=== PATIENT | male | born 1935 | race Caucasian/White ===

== ENCOUNTER → 2021-01-30 08:41 | Outpatient (BNVA) | payer MEDICARE, OTHER, SELFPAY | PROVIDERS: PCP Internal Medicine; Visit Provider Hospitalist | DX: I31.3 Pericardial effusion (noninflammatory) (principal); J84.9 Interstitial pulmonary disease, unspecified; J43.2 Centrilobular emphysema; J30.0 Vasomotor rhinitis; R06.00 Dyspnea, unspecified | CPT/HCPCS: 99202 ==

== ENCOUNTER 2021-04-09 09:02 | Outpatient (REF) | payer MEDICARE, OTHER, SELFPAY ==
--- NOTE | 2021-04-09 11:40 | PFT_ITS ---
FLOWS: FEV1 62% of predicted at 1.62 L. FVC 82% of predicted at 3.08 L. FEV1 to FVC ratio of 0.52. No bronchodilator response. LUNG VOLUMES: Total lung capacity 79% of predicted at 5.60 L. Residual volume 96% of predicted at 2.68 L. Slow vital capacity 68% of predicted at 2.92 L. Expiratory reserve volume 66% of predicted at 0.73 L. Diffusion capacity is severely decreased, diffusion capacity adjust to being moderately decreased after correction for alveolar ventilation. IMPRESSION: Combined moderate obstructive and mild restrictive ventilatory defect with no bronchodilator response. Decreased diffusion capacity suggests emphysema. MD GENA Zamora/MODL / [id number]
== END 2021-04-09 09:03 | disposition home or self-care (01) ==
LOC: HO.RESP 09:02
PROVIDERS: Visit Provider Hospitalist
DX: J43.2 Centrilobular emphysema (principal); J84.9 Interstitial pulmonary disease, unspecified; R06.00 Dyspnea, unspecified; J30.0 Vasomotor rhinitis
CPT/HCPCS: 94060; 94727; 94729; 99212

== ENCOUNTER → 2021-12-08 10:03 | Outpatient (BNVA) | payer MEDICARE, OTHER, SELFPAY | PROVIDERS: PCP Internal Medicine; Visit Provider Hospitalist | DX: J84.9 Interstitial pulmonary disease, unspecified (principal); R91.8 Other nonspecific abnormal finding of lung field; J43.2 Centrilobular emphysema; R06.00 Dyspnea, unspecified; J30.0 Vasomotor rhinitis | CPT/HCPCS: 71046; 94618; 99212 ==

== ENCOUNTER → 2022-01-27 09:27 | Outpatient (BNVA) | payer MEDICARE, OTHER, SELFPAY | PROVIDERS: PCP Internal Medicine; Visit Provider Hospitalist | DX: J43.2 Centrilobular emphysema (principal); J84.9 Interstitial pulmonary disease, unspecified; R06.00 Dyspnea, unspecified; J30.0 Vasomotor rhinitis; Z79.899 Other long term (current) drug therapy; Z99.81 Dependence on supplemental oxygen | CPT/HCPCS: 99212 ==

== ENCOUNTER 2022-06-09 09:22 | Outpatient (REF) | payer MEDICARE, OTHER, SELFPAY ==
--- NOTE | ~2022-06-09 | XR_ITS ---
EXAMINATION: XR CHEST CLINICAL INFORMATION: Interstitial lung disease COMPARISON: Previous chest x-ray November 2021. TECHNIQUE: 2 views of the chest were obtained. FINDINGS: The cardiac and mediastinal contours are stable. The pulmonary jessica are prominent. Appearance is more suggestive of prominent pulmonary arteries than lymphadenopathy. There is question of a nodular density overlying the left posterior sixth rib. This is similar to previous chest x-ray. The lungs are otherwise clear. No pleural effusion or pneumothorax. Degenerative changes of the spine. Report are in the left chest wall. XR/XR chest 2V IMPRESSION: Prominent pulmonary jessica more suggestive of a prominent pulmonary arteries and adenopathy. Question 1 cm left upper lung nodule. This is similar to November 2021 exam.
== END 2022-06-09 09:23 | disposition home or self-care (01) ==
LOC: HO.XRAY 09:22
PROVIDERS: PCP Internal Medicine; Visit Provider Hospitalist
DX: J84.9 Interstitial pulmonary disease, unspecified (principal); J43.2 Centrilobular emphysema; J30.0 Vasomotor rhinitis; Z99.81 Dependence on supplemental oxygen
CPT/HCPCS: 71046; 99212

== ENCOUNTER 2023-07-18 09:11 | Outpatient (AMB) | payer MEDICARE, OTHER, SELFPAY ==
[2023-07-18 09:23] VITALS: PULSE 73; O2SAT 88; BMI 29.6
--- NOTE | 2023-07-18 09:23 | A.OFFVIS_ITS ---
Vital Signs 07/18/23 09:23 Height 5 ft 10 in Weight 206 lb 2.115 oz BMI 29.6 Pulse 73 Pulse Source Pulse Oximeter Pulse Oximetry (%) 88 L Oxygen Delivery Method Room Air Intake Visit Reasons: COPD Corporate Coordinator Required: No Allergies No Known Allergies Allergy (Verified 07/18/23 09:25) HPI Comments Details: The patient is an 87-year-old gentleman with a known history of heart disease in addition to COPD. The patient has been developing progressive dyspnea. Moderate severity. He has been admitted multiple times wants to [facility] and also to [facility] more recently. During that evaluation did have an echocardiogram demonstrating moderate pleural effusion without cardiac tamponade. He also had a CT scan of the chest demonstrating interstitial changes primarily at the bases in addition to some emphysematous changes. The patient did work exposed to asbestos a significant part of his life. 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 On that CT scan he also had a large pericardial effusion. Starting of his symptomatic from this effusion. The patient does complain of cough and also postnasal drip. indeed with a pericardial effusion will assess for connective tissue conditions to try to address both issues that interstitial lung disease in the Pericardial fluid. We did review pulmonary function studies from [facility] back almost 10 years ago when he was being followed closely by Dr. Ruby and at that time he did have moderate degree of COPD already. During the office visit we did do a 6 minute walk test. The patient did desaturate down to the low 90s but he did not qualify for oxygen. At this point will start the patient on bronchodilator therapy to see if he can have some improvement in his respiratory symptoms. I will plan to repeat his pulmonary function studies. He will need to follow up closely with cardiology regarding his pericardial effusion which in the is significant in size. based on his recent CT scan of the chest done at [facility] was moderate to large. It was documented on echocardiogram at [facility] moderate severity. A hopeful that he can follow cardiology's to see they can assess to see if there is any progression of the pericardial effusion. 01/27/2022 the patient is here for a pulmonary follow-up visit. When he was last here he was having worsening respiratory symptoms. His chest x-ray demonstrated a hazy opacity. The patient was treated for lower respiratory infection. However his symptoms worsen and therefore he went to the hospital. He was admitted that [facility]. There he had a repeat chest x-ray demonstrating interval improvement in the mid lung opacity on the right side. Although he still has evidence of interstitial changes consistent with pulmonary fibrosis. Based on his x-rays does not appear to be worsening. He did have a CT scan of the chest in the past demonstrating also some emphysema. The patient was discharged after finishing a prednisone taper. At this point the patient does feel back to his baseline. He is short of breath with activity. He has been using a small conserving device at 2 L pulse. We did taken for a walking it appears that he needs 4 L pulse to maintain a pulse ox above 90%. He is able to take it off at rest and has been on room air as long as he does not feel short of breath. He is wondering about a portable oxygen concentrator. Explained to the patient that while he requires 4 L pulse the battery in this device is will not be sufficient. Also the commercial baking teacher devices do not reach 4 L pulse. Therefore this point he should continue with the oxygen tanks ideally be cylinders and the daughter is going to help get a carrying case that may be able to manage easier specially with his unsteady gait. Will go ahead and repeat his chest x-ray in February. If there is any interval worsening of the reticular changes then will request a CT scan of chest. We did talk about considering a small dose of prednisone if the patient has any interval worsening of the interstitial changes. 06/09/2022 the patient is here for a pulmonary follow-up visit. He is feeling about the same. He continues to exercise on his recumbent bike and continues to stay active. He does use the oxygen with activity. The patient completed the steroids. He did undergo a chest x-ray today. We did compare to the chest x- ray he had back in November. Based on my reading appears that the area of hazy opacity has improved. Therefore based on the fact that he is feeling well and the fact that his x-ray looks a little better and no significant changes in the interstitial lung disease component will hold off on any additional therapies including prednisone. He does continue to use these inhalers and he is also using Eliquis. Will plan to follow-up in a year's time with a chest x-ray although the patient understands that if he develops any worsening shortness of breath he is to call the office for an earlier evaluation. 07/18/2023 the patient is here for pulmonary follow-up visit. Overall he is doing well. He continues on the Trelegy inhaler. He does not once a day. He has not had to use any albuterol or prednisone since we last spoke. Has not had to go to the hospital had any x-rays. His last chest x-ray personally by me was from May 2022 demonstrating some interstitial changes. Will go ahead and repeat the x-ray whenever he gets a chance since been more than a year. The patient had recently had issues with lower extremity edema and significant swelling. He was placed on a new diuretic that seems to be working well. He is lost significant amount of weight and is lower extremity edema has improved dramatically. He is continue to monitor his weight closely. If she does gain weight he will call his manufacturing supervisor. Otherwise patient is doing well he is gotten vaccinated for pneumonia and he is up-to-date with the other vaccines. Will follow-up in a year's time or sooner if he develops any worsening symptoms. [facility] Medical History (Updated 02/01/21 @ 20:20 by Deng Tyler MD) Vasomotor rhinitis Dyspnea COPD (chronic obstructive pulmonary disease) Pericardial effusion ILD (interstitial lung disease) Social History (Updated 01/30/21 @ 09:23 by LOLA Balbuena) Patient Tobacco Use Status: Former Tobacco user Tobacco use type: Cigarette Years Smoked: 40 years Review of Systems Const Denies night sweats ENT Denies lip swelling, Denies mouth pain, Reports nasal congestion, Reports nasal discharge and Denies tongue swelling Card Denies chest pain and Reports dyspnea on exertion Resp Denies cough and Reports dyspnea on exertion GI Denies abdominal pain Musc Reports abnormal gait, Reports arthralgias and Reports muscle cramps Neuro Denies Neuro-related abnormal movements and Reports abnormal gait Psych Denies no additional complaints Mckinley/Lymph Denies easy bleeding and Denies lymphadenopathy Aller/Immun Denies lip swelling and Denies tongue swelling Physical Exam Vital Signs: Last Vital Signs Pulse 73 07/18/23 09:23 Pulse Ox 88 L 07/18/23 09:23 Oxygen Delivery Method Room Air 07/18/23 09:23 BMI result Body Mass Index 29.6 Const General: alert Neck Neck: Yes normal visual inspection, Yes full ROM and Yes no lymphadenopathy Chest Chest palpation & inspection: normal inspection of the chest Resp Auscultation: crackles bilateral at the base and diminished lung sounds Cardio Rate: regular rate Rhythm: regular rhythm Heart sounds: S1 normal heart sound present and S2 normal heart sound present GI Palpation (GI): Soft to palpation and nontender Auscultation: normal bowel sounds Skin General skin exam: rashes and/or lesions noted Assessment & Plan Assessment & Plan (1) ILD (interstitial lung disease): Code(s): J84.9 - Interstitial pulmonary disease, unspecified Category: Medical (2) COPD (chronic obstructive pulmonary disease): Code(s): J44.9 - Chronic obstructive pulmonary disease, unspecified Category: Medical Qualifiers: COPD type: emphysema Emphysema type: centrilobular Qualified Code(s): J43.2 - Centrilobular emphysema (3) Dyspnea: Code(s): R06.00 - Dyspnea, unspecified Category: Medical Qualifiers: Dyspnea type: dyspnea on exertion Qualified Code(s): R06.00 - Dyspnea, unspecified (4) Vasomotor rhinitis: Code(s): J30.0 - Vasomotor rhinitis Category: Medical Plan Continue Trelegy fluticasone and astelin continue oxygen supplementation with sleep and 4l/pulse with activity CXR Follow-up in 8-12 months Orders: Orders XR chest 2V Today J84.9 - Interstitial pulmonary disease, unspecified Coding Level of Care Code Est Pt Level 4 (14230) Diagnoses ILD (interstitial lung disease) J84.9 Centrilobular emphysema J43.2 COPD type: emphysema Emphysema type: centrilobular Dyspnea on exertion R06.00 Dyspnea type: dyspnea on exertion 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
== END 2023-07-18 09:35 | disposition home or self-care (01) ==
PROVIDERS: PCP Internal Medicine; Visit Provider Hospitalist
DX: J84.9 Interstitial pulmonary disease, unspecified (principal); J43.2 Centrilobular emphysema; R06.00 Dyspnea, unspecified; J30.0 Vasomotor rhinitis
CPT/HCPCS: 99214

== ENCOUNTER → 2023-07-18 09:11 | Outpatient (BNVA) | payer MEDICARE, OTHER, SELFPAY | PROVIDERS: PCP Internal Medicine; Visit Provider Hospitalist | DX: J84.9 Interstitial pulmonary disease, unspecified (principal); J43.2 Centrilobular emphysema; J30.0 Vasomotor rhinitis; R06.00 Dyspnea, unspecified | CPT/HCPCS: 99212 ==

== ENCOUNTER 2024-07-04 10:24 | Outpatient (AMB) | payer MEDICARE, OTHER, SELFPAY ==
--- NOTE | 2024-07-04 10:26 | MHC.OFFVIS ---
Vital Signs 07/04/24 10:27 Height 5 ft 10 in Weight 184 lb 1.376 oz BMI 26.4 BP 114/50 L Blood Pressure Location Lt brachial Position Sitting Pulse 50 Pulse Source Pulse Oximeter Pulse Oximetry (%) 94 Oxygen Delivery Method Room Air Intake Visit Reasons: copd Director [employer] Required: No Allergies No Known Allergies Allergy (Verified 07/04/24 10:30) HPI Comments Details: The patient is an 88-year-old gentleman with a known history of heart disease in addition to COPD. The patient has been developing progressive dyspnea. Moderate severity. He has been admitted multiple times wants to [facility] and also to [facility] more recently. During that evaluation did have an echocardiogram demonstrating moderate pleural effusion without cardiac tamponade. He also had a CT scan of the chest demonstrating interstitial changes primarily at the bases in addition to some emphysematous changes. The patient did work exposed to asbestos a significant part of his life. 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 On that CT scan he also had a large pericardial effusion. Starting of his symptomatic from this effusion. The patient does complain of cough and also postnasal drip. indeed with a pericardial effusion will assess for connective tissue conditions to try to address both issues that interstitial lung disease in the Pericardial fluid. We did review pulmonary function studies from [facility] back almost 10 years ago when he was being followed closely by Dr. Ruby and at that time he did have moderate degree of COPD already. During the office visit we did do a 6 minute walk test. The patient did desaturate down to the low 90s but he did not qualify for oxygen. At this point will start the patient on bronchodilator therapy to see if he can have some improvement in his respiratory symptoms. I will plan to repeat his pulmonary function studies. He will need to follow up closely with cardiology regarding his pericardial effusion which in the is significant in size. based on his recent CT scan of the chest done at [facility] was moderate to large. It was documented on echocardiogram at [facility] moderate severity. A hopeful that he can follow cardiology's to see they can assess to see if there is any progression of the pericardial effusion. 01/27/2022 the patient is here for a pulmonary follow-up visit. When he was last here he was having worsening respiratory symptoms. His chest x-ray demonstrated a hazy opacity. The patient was treated for lower respiratory infection. However his symptoms worsen and therefore he went to the hospital. He was admitted that [facility]. There he had a repeat chest x-ray demonstrating interval improvement in the mid lung opacity on the right side. Although he still has evidence of interstitial changes consistent with pulmonary fibrosis. Based on his x-rays does not appear to be worsening. He did have a CT scan of the chest in the past demonstrating also some emphysema. The patient was discharged after finishing a prednisone taper. At this point the patient does feel back to his baseline. He is short of breath with activity. He has been using a small conserving device at 2 L pulse. We did taken for a walking it appears that he needs 4 L pulse to maintain a pulse ox above 90%. He is able to take it off at rest and has been on room air as long as he does not feel short of breath. He is wondering about a portable oxygen concentrator. Explained to the patient that while he requires 4 L pulse the battery in this device is will not be sufficient. Also the territory service representative devices do not reach 4 L pulse. Therefore this point he should continue with the oxygen tanks ideally be cylinders and the daughter is going to help get a carrying case that may be able to manage easier specially with his unsteady gait. Will go ahead and repeat his chest x-ray in February. If there is any interval worsening of the reticular changes then will request a CT scan of chest. We did talk about considering a small dose of prednisone if the patient has any interval worsening of the interstitial changes. 06/09/2022 the patient is here for a pulmonary follow-up visit. He is feeling about the same. He continues to exercise on his recumbent bike and continues to stay active. He does use the oxygen with activity. The patient completed the steroids. He did undergo a chest x-ray today. We did compare to the chest x-ray he had back in November. Based on my reading appears that the area of hazy opacity has improved. Therefore based on the fact that he is feeling well and the fact that his x-ray looks a little better and no significant changes in the interstitial lung disease component will hold off on any additional therapies including prednisone. He does continue to use these inhalers and he is also using Eliquis. Will plan to follow-up in a year's time with a chest x-ray although the patient understands that if he develops any worsening shortness of breath he is to call the office for an earlier evaluation. 07/18/2023 the patient is here for pulmonary follow-up visit. Overall he is doing well. He continues on the Trelegy inhaler. He does not once a day. He has not had to use any albuterol or prednisone since we last spoke. Has not had to go to the hospital had any x-rays. His last chest x-ray personally by me was from May 2022 demonstrating some interstitial changes. Will go ahead and repeat the x-ray whenever he gets a chance since been more than a year. The patient had recently had issues with lower extremity edema and significant swelling. He was placed on a new diuretic that seems to be working well. He is lost significant amount of weight and is lower extremity edema has improved dramatically. He is continue to monitor his weight closely. If she does gain weight he will call his steward/stewardess third. Otherwise patient is doing well he is gotten vaccinated for pneumonia and he is up-to-date with the other vaccines. Will follow-up in a year's time or sooner if he develops any worsening symptoms. 07/04/2024 the patient is here for pulmonary follow-up visit. Has been a year since I last saw him. Back in October he was admitted to the ICU at [facility] with multiple complaints including respiratory failure. He did have a CT scan of the abdomen demonstrating bilateral dense consolidations. He was treated with antibiotics and subsequently transition to the regular floor. When he went home. He still has a congested cough. Still has some shortness of breath. Denies any chest pains. He did try to provide us a sputum sample in the office and it looked jessee in color suggesting some hemoptysis. It was not a good specimen since it was mixed with saliva so therefore given of the cup in order for him to provide a better sample. In the meantime in view of the significant pneumonias the hemoptysis in the crackles on examination will go ahead and request a CT scan of the chest. Patient prefers to do that at [facility]. He will continue with current respiratory therapy as prescribed. Will follow-up in 4-6 months. However, if his CAT scan or the sputums have normal let him know for further recommendations. [facility] Medical History (Updated 07/04/24 @ 22:33 by Deng Tyler MD) Hemoptysis Vasomotor rhinitis Dyspnea COPD (chronic obstructive pulmonary disease) Pericardial effusion ILD (interstitial lung disease) Social History (Updated 07/04/24 @ 10:32 by Bailey Berg CMA) Alcohol intake: current Alcohol intake frequency: 0-2 drinks per day Patient Tobacco Use Status: Former Tobacco user Tobacco use type: Cigarette Years Smoked: 40 years Review of Systems Const Denies chills, Denies fatigue, Denies fever(s), Denies weight gain and Denies weight loss ENT Denies dizziness, Denies lip swelling and Denies tongue swelling Card Denies chest pain, Denies leg edema, Denies lightheadedness, Denies palpitations, Denies dyspnea on exertion, Denies orthopnea and Denies other Resp Reports chest congestion, Reports cough, Reports hemoptysis and Denies dyspnea on exertion GI Denies hematochezia and Denies change in stool character Musc Denies abnormal gait, Denies muscle weakness, Denies numbness, Denies radiating pain into limb and Denies tingling Neuro Denies abnormal gait, Denies dizziness, Denies numbness and Denies tingling Psych Denies no additional complaints Endo Denies fatigue and Denies palpitations Mckinley/Lymph Denies easy bleeding and Denies lymphadenopathy Aller/Immun Denies lip swelling and Denies tongue swelling Physical Exam Vital Signs: Last Vital Signs Pulse 50 07/04/24 10:27 BP 114/50 L 07/04/24 10:27 Pulse Ox 94 07/04/24 10:27 Oxygen Delivery Method Room Air 07/04/24 10:27 BMI result Body Mass Index 26.4 Const General: alert Neck Neck: Yes normal visual inspection, Yes full ROM and Yes no lymphadenopathy Chest Chest palpation & inspection: normal inspection of the chest Resp Effort & Inspection: normal respiratory effort Auscultation: crackles bilateral at the base and diminished lung sounds Cardio Rate: regular rate Rhythm: regular rhythm Heart sounds: S1 normal heart sound present and S2 normal heart sound present GI Palpation (GI): Soft to palpation and nontender Auscultation: normal bowel sounds Skin General skin exam: rashes and/or lesions noted Assessment & Plan Assessment & Plan (1) ILD (interstitial lung disease): Code(s): J84.9 - Interstitial pulmonary disease, unspecified Category: Medical (2) COPD (chronic obstructive pulmonary disease): Code(s): J44.9 - Chronic obstructive pulmonary disease, unspecified Category: Medical Qualifiers: COPD type: emphysema Emphysema type: centrilobular Qualified Code(s): J43.2 - Centrilobular emphysema (3) Dyspnea: Code(s): R06.00 - Dyspnea, unspecified Category: Medical Qualifiers: Dyspnea type: dyspnea on exertion Qualified Code(s): R06.00 - Dyspnea, unspecified (4) Vasomotor rhinitis: Code(s): J30.0 - Vasomotor rhinitis Category: Medical (5) Hemoptysis: Code(s): R04.2 - Hemoptysis Category: Medical (6) Pneumonia: Code(s): J18.9 - Pneumonia, unspecified organism Category: Medical Qualifiers: Pneumonia type: due to unspecified organism Laterality: bilateral Lung location: lower lobe of lung Qualified Code(s): J18.9 - Pneumonia, unspecified organism Plan Continue Trelegy fluticasone and astelin continue oxygen supplementation with sleep and 4l/pulse with activity CT chest Sputum cx Follow-up in 4-6 months Orders: Orders Sputum Cult + Gram stain Today R91.1 - Solitary pulmonary nodule CT chest wo IV con Today J18.9 - Pneumonia, unspecified organism, J84.9 - Interstitial pulmonary disease, unspecified, R04.2 - Hemoptysis Coding Level of Care Code Est Pt Level 4 (73478) Complex EM visit Add On G2211 Diagnoses ILD (interstitial lung disease) J84.9 Centrilobular emphysema J43.2 COPD type: emphysema Emphysema type: centrilobular Dyspnea on exertion R06.00 Dyspnea type: dyspnea on exertion Vasomotor rhinitis J30.0 Hemoptysis R04.2 Pneumonia of both lower lobes due to infectious organism J18.9 Pneumonia type: due to unspecified organism Laterality: bilateral Lung location: lower lobe of lung Time Spent (min) 18
[2024-07-04 10:27] VITALS: BP 114/50; PULSE 50; O2SAT 94; BMI 26.4
== END 2024-07-04 10:56 | disposition home or self-care (01) ==
LOC: HO.HPS 10:25
PROVIDERS: PCP Internal Medicine; Visit Provider Hospitalist
DX: J43.2 Centrilobular emphysema (principal); J84.9 Interstitial pulmonary disease, unspecified; R04.2 Hemoptysis
CPT/HCPCS: 99214; G2211

== ENCOUNTER → 2024-07-04 10:24 | Outpatient (BNVA) | payer MEDICARE, OTHER, SELFPAY | PROVIDERS: PCP Internal Medicine; Visit Provider Hospitalist | DX: J84.9 Interstitial pulmonary disease, unspecified (principal); J43.2 Centrilobular emphysema; J18.9 Pneumonia, unspecified organism; J30.0 Vasomotor rhinitis; R06.00 Dyspnea, unspecified; R04.2 Hemoptysis | CPT/HCPCS: 99212 ==